=== PATIENT | male | born 1985 ===

== ENCOUNTER 2020-03-12 07:52 | Outpatient (REF) | payer BC, SELFPAY ==
--- NOTE | 2020-03-12 09:37 | MHC.AU.AEV ---
Adult Audiological Evaluation AUD- Audiology Adult New Evaluation Start: 03/12/20 09:23 Freq: Status: Active Protocol: Activity Type Activity Date Activity User E-Sign Co-Sign Detail Recorded Client Recorded Date Recorded By Document 03/12/20 09:23 WIL [id number] 03/12/20 09:35 WIL 03/12/20 09:23 Adult Audiological Evaluation [Date of Visit] -Date of Visit 03/12/20 [Reason For Appointment] -Reason for Appointment Audiologic evaluation due to increased difficulty understanding speech, particularly when background noise is present -Does patient feel they have a hearing Yes loss? -If Yes, Which Ear? Right Ear -When Was Hearing Difficulty First Gradually over Noticed? the past year [Previous Testing] -Has hearing been tested previously? No [Hearing Handicap Inventory (HHIE)] -Does a hearing problem cause you to No feel embarrassed when you meet new people? -Does a hearing problem cause you to No feel frustrated when talking to members of you family? -Do you have difficulty when someone Yes speaks in a whisper? -Do you feel handicapped by a hearing No problem? -Does a hearing problem cause you No difficulty when visiting friends, relatives, or neighbors? -Does a hearing problem cause you to No attend protestant services less often than you would like? -Does a hearing problem cause you to No have arguments with family members? -Does a hearing problem cause you Yes difficulty when listening to TV or radio ? -Do you feel that any difficulty with No your hearing limits or hampers your personal or social life? -Does a hearing problem cause you Sometimes difficulty when in a restaurant with relatives or friends? -HHIE SCORE 10 -Based on HHIE score, patient has: Mild to moderate perceived hearing handicap [Reported History] -Bothersome Tinnitus/Ringing/Noises in Both Ears Ears -Ear used on the phone Right Ear -History of occupational noise Yes: Recently exposure? started using hearing protection - History No [Otoscopy] -Otoscopy- Right Ear Unremarkable -Otoscopy- Left Ear Unremarkable [Tympanometry] -Tympanometry- Right Ear Normal Middle Ear System ( Type A) -Tympanometry- Left Ear Normal Middle Ear System ( Type A) [Otoacoustic Emissions] -Frequency Range Used: 2690-7587 Hz -Otoacoustic Emissions- Right Ear- Present at 1600 Other -3000 Hz Absent at 4000- 8000 Hz -OAE Analysis- Right Ear Reduced/Absent emissions suggest cochlear dysfunction -Otoacoustic Emissions- Left Ear- Present at 1600 Other and 2000 Hz Absent at 3000- 8000 Hz -OAE Analysis- Left Ear Reduced/Absent emissions suggest cochlear dysfunction [Hearing Test Methods] -Transducer(s) Used Insert Earphones -Method Conventional Audiometry -Stimuli Used Pure Tones [Hearing- Right Ear] -Description of Hearing- Right Ear Normal hearing thresholds from 250-3000 Hz dropping to a moderately- severe high frequency sensorineural hearing loss. [Hearing- Left Ear] -Description of Hearing- Left Ear Normal hearing levels from 250 -2000 Hz dropping to a moderately- severe sensorineural hearing loss in the high frequencies [Speech Recognition Threshold (SRT)] -Method Used Monitored Live Voice -Stimuli Used Spondee Words -Speech Recognition Threshold (SRT)- 5 Right Ear (in dBHL) -Speech Recognition Threshold (SRT)- 10 Left Ear (in dBHL) [Word Discrimination] -Method: Recorded Lists -Word Lists Used: NU-6 -Word Discrimination- Right Ear 100% at 50 dB HL -Word Discrimination- Left Ear 96% at 55 dB HL [QuickSIN] -QuickSIN Binaural score: 6 dB SNR Loss Mild degree of difficulty in noise compared to normal hearing individuals [Compared to Most Recent Evaluation:] -Compared to the most recent N/A evaluation: [Recommendations] -Recommendations Audiological re -evaluation in one year., Patient does not feel they are ready for amplification at this time., Hearing protection should be used when around loud noise. -Recommendations (Other) Discussed and provided a handout regarding communication strategies to use when needed . [Diagnosis] -Primary Diagnosis: H90.3 Bilateral Sensorineural Hearing Loss -Secondary Diagnosis: H93.13 Tinnitus , Bilateral [Services Performed] -Services Performed Comprehensive Audiological Evaluation (CPT 88229), Diagnostic Otoacoustic Emissions (CPT 80346, 26+TC), Tympanometry ( CPT 20290) Signature [Signature] -Provider Carol Blank, [facility]
== END 2020-03-12 07:53 | disposition home or self-care (01) ==
LOC: HO.SH 07:52
PROVIDERS: Visit Provider Physician Assistant Medical
DX: H90.3 Sensorineural hearing loss, bilateral (principal); H93.13 Tinnitus, bilateral
CPT/HCPCS: 92557; 92567; 92588